=== PATIENT | female | born 1950 | race Hispanic/Latino ===

== ENCOUNTER 2016-10-10 18:09 | Emergency (ER) | payer SELFPAY ==
[2016-10-10 18:09] VITALS: BP 146/85; PULSE 71; RESP 20; O2SAT 100
--- NOTE | 2016-10-10 18:22 | ED.REPORT ---
HPI-Trauma Minor / Fall Date of Service Oct 10, 2016 ED Provider: Doc,Ed MD History of Present Illness: getting into car and car started moving and she fell back wards. happened about 1 hour ago. primary care is no one. no medications. pain is 10/10. Nursing Notes Stated Complaint: BACK PAIN/KNEE PAIN AFTER FALL Nursing Notes Reviewed: Yes Allergies: Coded Allergies: No Known Allergies (Unverified , 10/10/16) General Time Seen by MD: 18:21 Chief Complaint Fall Hx Obtained From: Patient Onset Occurred: 1 - 4 hours ago Symptom Duration: Since onset Caused by: Accidental Severity: Current: Pain level 10 out of 10 Past Medical History Past Medical History Denies: Asthma Past Surgical History denies Smoking History Never Smoker Social History Alcohol Use: Denies alcohol use Drug Use: Denies drug use Occupation lives with daughter and her family Ambulatory Status Independent Review of Systems Basic Review of Systems Cardiovascular: No chest pain GI: No abdominal pain Endocrine: No cold intolerance Physical Exam Initial Vital Signs Vital Signs (First) Date Time Temp Pulse Resp B/P Pulse Ox O2 Delivery O2 Flow Rate FiO2 10/10/16 18:09 36.5 71 20 146/85 100 Room Air Initial VS: Reviewed, Vital signs normal Head / Eyes: Atraumatic ENT: Mucous membranes moist Respiratory: Breath sounds normal Cardiovascular: Regular rate & rhythm Back: No CVA tenderness General/Constitutional: Awake, Alert, No acute distress, Well appearing, Well developed, Well hydrated, Well nourished, Cooperative, Not toxic appearing Neck: Atraumatic, Supple, No meningismus, Full range of motion ENT: Atraumatic, Airway patent, Mucous membranes moist, Pharynx NL diffuse back pain Cardiovascular: Heart rate NL, Regular rhythm, Heart sounds NL patient reporting pain in buttocks, exam does not show any erthyma or sign of pilondial cyst. Interpretation & Diagnostics Interpretation & Diagnostics: TECHNIQUE: 3 views of the thoracic spine were acquired. COMPARISON: None. FINDINGS: Bones: No fractures or dislocations. No suspicious bony lesions. 12 pairs of ribs are noted, and appear intact where visualized. Soft tissues: No paravertebral stripe thickening. IMPRESSION: No fracture or dislocation. If clinical symptoms persist or clinical suspicion for pathology is high, advanced imaging such as CT or MRI is suggested for further evaluation. X-Ray Interpretation Xray Interpretation: TECHNIQUE: 3 views of the lumbar spine were acquired. COMPARISON: None. FINDINGS: Bones: 5 [id number] vertebrae are present. There is normal bony alignment. No vertebral body compression fractures. No suspicious bony lesions. Moderate facet arthropathy at L5-S1. Soft tissues: Overlying bowel gas pattern is normal. No suspicious soft tissue calcifications. IMPRESSION: No fracture or dislocation. Facet arthropathy at L5-S1. Re-Eval/Medical Decision Med Decision/Clinical Course Exam does not identify any compression fracture, pilondial cyst in the buttocks or acute fracture. Discharge & Departure Impression: Primary Impression: Fall Encounter type: initial encounter Qualified Code: W19.XXXA - Unspecified fall, initial encounter Additional Impressions: Back sprain Buttock pain Disposition: Home Patient Instructions: Fall Prevention for Older Adults (GEN), Low Back Strain ( ED) Additional Instructions: The x-ray is negative , it does not show any sign of bony damage. You have had some pain relief with the ketorolac. You are being provided a prescription of the same medication in pill form to help with the pain. You can also use hydrocodone 1 at night as needed for severe unrelenting pain. Please establish in primary care, [facility] I am sorry this happened to you. Referrals: [facility] EDSupervising Provider for APC: Sean Harvey DO copies to: [facility] Shyann Boggs Oct 10, 2016 18:22
[2016-10-10] MEDS ORDERED: Ketorolac 30 mg/mL 2 mL Inj IM ONE (18:35)
--- NOTE | 2016-10-10 20:03 | DRSVH ---
PROCEDURE: X-RAY LUMBAR SPINE, 2 OR 3 VIEW INDICATIONS: fall TECHNIQUE: 3 views of the lumbar spine were acquired. COMPARISON: None. FINDINGS: Bones: 5 [id number] vertebrae are present. There is normal bony alignment. No vertebral body c ompression fractures. No suspicious bony lesions. Moderate facet arthropathy at L5-S1. Soft tissues: Overlying bowel gas pattern is normal. No suspicious soft tissue calcifications. IMPRESSION: No fracture or dislocation. Facet arthropathy at L5-S1. Dictated by: Dina Goodrich M.D. on 10/10/2016 at 20:00 Approved by: Dina Goodrich M.D. on 10/10/2016 at 20:01
--- NOTE | 2016-10-10 20:04 | DRSVH ---
PROCEDURE: X-RAY THORACIC SPINE, 3 VIEWS INDICATIONS: fall TECHNIQUE: 3 views of the thoracic spine were acquired. COMPARISON: None. FINDINGS: Bones: No fractures or dislocations. No suspicious bony lesions. 12 pairs of ribs are noted, and ap pear intact where visualized. Soft tissues: No paravertebral stripe thickening. IMPRESSION: No fracture or dislocation. If clinical symptoms persist or clinical suspicion for patho logy is high, advanced imaging such as CT or MRI is suggested for further evaluation. Dictated by: Dina Goodrich M.D. on 10/10/2016 at 20:01 Approved by: Dina Goodrich M.D. on 10/10/2016 at 20:02
[2016-10-10 20:34] VITALS: BP 140/75; PULSE 75; RESP 16; O2SAT 98
== END 2016-10-10 20:35 | disposition home or self-care (01) ==
LOC: SED 18:17
DX: S33.5XXA Sprain of ligaments of lumbar spine, initial encounter (principal); S23.3XXA Sprain of ligaments of thoracic spine, initial encounter; M53.3 Sacrococcygeal disorders, not elsewhere classified; V48.6XXA Car passenger injured in noncollision transport accident in traffic accident, initial encounter; Y93.89 Activity, other specified; Y99.8 Other external cause status; Y92.014 Private driveway to single-family (private) house as the place of occurrence of the external cause
CPT/HCPCS: 72072; 72100; 96372; 99284; J1885